=== PATIENT | female | born 1985 | race Caucasian/White ===

== ENCOUNTER → 2017-12-15 11:34 | Outpatient (CLI) | payer OTHER, SELFPAY ==
[2017-12-15 14:12] LABS: hCG Titer Quant., Serum 513 mIU/mL (<9 non-preg)
== END ==
PROVIDERS: Visit Provider Obstetrics & Gynecology
DX: N91.2 Amenorrhea, unspecified (principal)
CPT/HCPCS: 36415; 84702

== ENCOUNTER → 2017-12-17 13:31 | Outpatient (CLI) | payer OTHER, SELFPAY ==
[2017-12-17 16:17] LABS: hCG Titer Quant., Serum 1319 mIU/mL (<9 non-preg)
== END ==
PROVIDERS: Visit Provider Obstetrics & Gynecology
DX: N91.2 Amenorrhea, unspecified (principal)
CPT/HCPCS: 36415; 84702

== ENCOUNTER → 2018-04-02 15:28 | Outpatient (CLI) | payer OTHER, SELFPAY ==
[2018-03-13 15:05] VITALS: BMI 21.9
--- NOTE | 2018-04-02 15:37 | EKG12_ITS ---
Test Reason : Blood Pressure : / mmHG Vent. Rate : 088 BPM Atrial Rate : 088 BPM P-R Int : 156 ms QRS Dur : 094 ms QT Int : 374 ms P-R-T Axes : -05 049 046 degrees QTc Int : 452 ms Normal sinus rhythm Incomplete right bundle branch block Borderline ECG Confirmed by SIRIA TRUJILLO, STORMY ([id number]), news copy editor URBANO ZENG ([id number]) on 04/06/2018 10:13:58 AM Referred By: Meliza Burciaga Confirmed By:STORMY BEVERLY MD
== END ==
PROVIDERS: Referring Provider Obstetrics & Gynecology; Visit Provider Obstetrics & Gynecology
DX: R00.2 Palpitations (principal)
CPT/HCPCS: 93005

== ENCOUNTER 2018-04-08 16:20 | Outpatient (CLI) | payer OTHER, SELFPAY ==
[2018-03-13 15:05] VITALS: BMI 21.9
[2018-04-08 17:41] VITALS: BMI 26.3
--- NOTE | 2018-04-10 08:53 | OB.TRI.PN ---
Progress Notes Date of Service: 04/08/18 Progress Note: patient presented for pelvic pressure and questionable contractions- nothing regular seen, cervix closed, FHT present x 2 reassuring status dc home labor preacutions
--- OUTSIDE RECORDS SUMMARY | 2018-06-13 16:16 | XMS RPT_ITS ---
:1985 Author Organization OHIP Support Name Relationship Address Phone EMILY RODRIGUEZ Unavailable Unavailable Unavailable CARISSA NIXONI Unavailable . + [place] [address] SILROSIO ANNA Unavailable [address] + [place] [address] UE Unavailable Unavailable Unavailable HUSSAIN, DANIEL Unavailable Unavailable + [place] [address] SILROSIO, ANNA Unavailable [address] + [place] [address] UE Unavailable Unavailable Unavailable RIVKA RODRIGUEZE Unavailable Unavailable Unavailable VIGNESH RODRIGUEZLIE Unavailable Unavailable Unavailable HUSSAIN, DANIEL Unavailable . + [place] [address] SILOY, ANNA Unavailable [address] + [place] [address] UE Unavailable Unavailable Unavailable HUSSAIN, DANIEL Unavailable Unavailable + [place] [address] SILOY, ANNA Unavailable [address] + [place] [address] UE Unavailable Unavailable Unavailable VIGNESH RODRIGUEZLIE Unavailable Unavailable Unavailable HUSSAIN, DANIEL Unavailable 0 + [place] [address] SILOY, ANNA Unavailable [address] + [place] [address] UE Unavailable Unavailable Unavailable SILOY, ANNA Unavailable [address] + [place] [address] UE Unavailable Unavailable Unavailable SILOY, ANNA Unavailable [address] + [place] [address] UE Unavailable Unavailable Unavailable Care Team Providers Name Role Phone MELIZA DE LA CRUZ Referring Unavailable NO PRIMARY CARE, Primary Care Unavailable TINY LANGFORD Attending Unavailable HARRISON FRANKLIN Attending Unavailable NO PRIMARY CARE, Referring Unavailable NO PRIMARY CARE, Primary Care Unavailable BETHANY ROCHE Attending Unavailable NO PRIMARY CARE, Primary Care Unavailable MARCANTHONY, MELIZA E Referring Unavailable ANA ROSA EMERSON Attending Unavailable NO PRIMARY CARE, Primary Care Unavailable MARCANTHONY, MELIZA E Referring Unavailable Marcanthony, Meliza Attending Unavailable Marcanthony, Meliza Referring Unavailable Primay Care Physicia, No Primary Care Unavailable BenekosLakshmi Attending Unavailable Primay Care Physicia, No Primary Care Unavailable LauritaMao deal Attending Unavailable Marcanthony, Melzia Referring Unavailable Primay Care Physicia, No Primary Care Unavailable Marcanthony, Meliza Consulting Unavailable Marcanthony, Meliza Attending Unavailable Marcanthony, Meliza Referring Unavailable Primay Care Physicia, No Primary Care Unavailable Marcanthony, Meliza Attending Unavailable Primay Care Physicia, No Referring Unavailable Benekos, Lakshmi Attending Unavailable Primay Care Physicia, No Primary Care Unavailable Marcanthony, Meliza Attending Unavailable Primay Care Physicia, No Referring Unavailable PROBLEMS PROBLEMS DATE TYPE CONDITION / CODE ATTENDING STATUS SOURCE 04/15/2018 Unknown O09.92 - Marcanthony, Active [place] Supervision of [facility] risk [facility] , Repository unspecified, second trimester / O09.92(ICD-10) 04/15/2018 Unknown O30.032 - Twin Marcanthony, Active [place] , [facility] monochorionic/diam Hospital niotic, second Repository trimester / O30.032(ICD-10) 04/15/2018 Unknown Z98.891 - History Marcanthony, Active [place] of uterine scar [facility] from previous Hospital surgery / Repository Z98.891(ICD-10) 04/15/2018 Unknown F84.0 - Autistic Marcanthony, Active [place] disorder / [facility] F84.0(ICD-10) Hospital Repository 04/15/2018 Unknown Z3A.20 - 20 weeks Marcanthony, Active [place] gestation of [facility] / Hospital Z3A.20(ICD-10) Repository 04/06/2018 Unknown R00.2 - LauritaMoose dealril Active [place] Palpitations / Community R00.2(ICD-10) Hospital Repository 03/13/2018 Unknown Z3A.17 - 17 weeks Marcanthony, Active [place] gestation of [facility] / Hospital Z3A.17(ICD-10) Repository 12/15/2017 Unknown N91.2 - Lakshmi Ferrari Active [place] Amenorrhea, [facility] unspecified / Hospital N91.2(ICD-10) Repository PROCEDURES PROCEDURES No Procedure Records FoundRESULTS RESULTS REFURBISH TECHNICIAN OFFICE VISIT Observed: 04/15/2018 Status: F Source: [place] [facility] RE[facility] 12:57 PM [facility] REPOSIT[facility] [address] [place] [address] OFFICE VISIT Date of Service: 04/15/18 MR#: [id number] Acct: [id number] Name: EMILY RODRIGUEZ Rep #: [id number] : 1985 Provider: Meliza De La Cruz MD Age/Sex: 32/F Location: [facility] Status: Signed Intake Vital Signs04/15/18 Height 5 ft 5 in 04/15/18 Weight: 160 lb 4 oz 04/15/18 Body Mass Index (BMI) 26.6 04/15/18 Blood Pressure 120/76 03/13/18 Body Mass Index (BMI) 21.9 Intake Visit Reasons: 21 WK OB *TWINS Fabricating Machine Operator Required: No Is patient in pain?: No Allergies latex Adverse Reaction (Verified 04/15/18 12:26) Rash Medications ferrous sulfate 325 mg (65 mg iron) tablet 325 mg PO DAILY tab 03/13/18 [History Confirmed 04/15/18] vitamin#30 30 mg iron-10 mg iron-folic acid 1 mg- omg3 capsule cap PO cap 03/13/18 [History Confirmed 04/15/18] Aspirin [Aspir 81] 81 mg PO 04/08/18 [History Confirmed 04/15/18] Last Menstral Period: 11/14/17 Zika: Zika virus screening: Negative : No PFSH PFSH Medical History Anxiety (Acute) Infertility (Acute) Surgical History History of appendectomy (Acute) History of dilation and curettage (Acute) Social History Smoking Status: Never smoker alcohol intake: never substance use type: does not use caffeine: Yes what type of physical activity do you participate in: none seatbelt use: always do you feel safe at home: Yes additional social history: [facility] Insurance Pregancy History 7 Elective abortions Hx Para 1 Spontaneous abortions Past Pregnancies Del. DatName GA/WeeksOutcome Route Bt WeigInfant GLabor LgAnesthesDel LocaProviderFOB e ht en th ia tn Unknown 2011 COn live birC-sectio Male Shriner nor th - fuln l term HPI 21 WK OB *TWINS: Details: EMILY RODRIGUEZ is a 32 year old who presents for routine OB visit. OB Visit ASHA Calculator Estimated Delivery Date 08/20/18 Based on LMP (certain) 11/13/17 Current WG 21w 6d Number 2 Initial Weight: 10 lb Date Weight BP Urine PrFHR FuHt Pres MoCTX DilationFetal StVisit NoProviderComments E ot v te GA G Effac lucose ed Visit Notes Visit Date: 04/15/18 no vb lof good fm n oregular ctx. had US at [facility] Meliza De La Cruz MD on 04/15/18 Visit Date: 03/13/18 no vb cramping co some palpitations Meliza De La Cruz MD on 03/13/18 no vb cramping Meliza De La Cruz MD on 03/13/18 Diagnostics Diagnostics Labs Hct 36.7 % (37-47) L 11/19/16 Hgb 12.4 g/dl (12.0-15.0) 11/19/16 Details: HIV: Urine Culture: Sequential Screen: NIPT Screen: Results [id number] Office Urine Glucose Negative Last Edit by Chio Lazaro on 04/15/18 12:39 Office Urine Protein Negative Last Edit by Chio Lazaro on 04/15/18 12:39 Assessment AND Plan Problems 1. Autism F84.0 son 2. History of delivery Z98.891 versus tolac 3. 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 growth every 4 weeks. Weekly BPP at 32 weeks. Deliver at 37 weeks. 4. 20 weeks gestation of Z3A.20 genetic carrier and ntd screening offered and declined. anatomy us reviewed 5. Supervision of high risk in second trimester O09.92 ASHA 08/20/18 Boy Manpreet [facility] [place] [facility] Jimmie Anna OSMAR [facility] Plan ACOG trimester education reviewed and updated. see problem list details for updated plan management information and see below for orders placed at this visit. GA appropriate handout given. 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 O30.032 Trimester: second trimester 20 weeks gestation of Z3A.20 Weeks of gestation: 20 weeks Supervision of high risk in second trimester O09.92 Trimester: second trimester 04/15/18 1257 <Electronically signed by Meliza De La Cruz MD> Date Meliza De La Cruz MD Cosigner Signature: Date (if applicable) CC: PROGRESS NOTE Observed: 04/08/2018 Status: COMPLETED Source: [place] 11:30 AM [facility] REPOSITORY Met with patient and her Anna Here for Searcy/di Twins Medical, surgical and family hx reviewed Psycho/Social risk: Support System: and extended family Financial Stressors: denies Family Dynamics: lives with and son Behavioral Health Issues: denies Work History: homemaker Information on FTC services given. Consent to share information with FTC team, OB and pierce and shave press operator signed. Pt plans to deliver at [facility] with Dr. De La Cruz. Tile Sorter is Dr Weir. Male fetuses- name are yet to be decided Method of feeding: formula Ultrasound findings today: See report in procedures for details. echocardiograms normal x 2 per preliminary report from Dr. Gatica. Pt will follow up q 2 weeks for reevaluation of TTTS surveillance, monthly growth Reinforced continued OB care with Gualberto The total patient time of the visit was 5 minutes, of which greater than 50% of the time was spent counseling and coordinating care. PROGRESS NOTE Observed: 04/08/2018 Status: COMPLETED Source: [place] 11:30 AM [facility] REPOSITORY Patient was seen in [facility] for mono/di twins. The total patient time of the visit was 15 minutes, of which greater than 50% of the time was spent counseling and coordinating care. PROGRESS NOTE Observed: 04/08/2018 Status: COMPLETED Source: [place] 9:00 AM [facility] REPOSITORY New patient 04/10/2018 RE: Emily Rodriguez : 1985 AGE: 32 y.o. CSN#: [id number] Gestational Age: 21 Weeks Delivery Hospital: [facility] Reason for visit: Chief Complaint Patient presents with ECHO echo, monochorionic diamniotic twin , twin a with suspected ventricular septal defect. Other indications:Twin OB History 7 Para 1 Term 1 AB 5 Living 1 SAB TAB Ectopic Multiple Live Births 1 Counseling and/or coordination of care (face to face time in the office/outpatient setting or floor/unit time in the hospital) was greater than 40 minutes which is more than 50% of the total time of 70 minutes spent on the encounter. In addition, the following items were performed before, during and after this visit: Synthesis of current imaging findings. Results for orders placed or performed in visit on 04/08/18 Echo New Narrative [facility] [place] [place] [address] [email or web address] Echocardiogram Report M-mode, complete 2D, complete spectral Doppler, and color Doppler PATIENT: Emily Rodriguez STUDY DATE/TIME: Apr 08 2018 10:22AM HEIGHT: : 1985 WEIGHT: AGE: 32yr BSA/BMI: / GENDER: F BP: 125 / 69 LOCATION: [facility] REFERRING PHYSICIAN: No Primary Care, [facility] [place] ORDERING PROVIDER: Yolanda Rodriguez Cnp READING PHYSICIAN: UYEN Benavides MINCEMEAT MAKER: Elisa Barajas RDCS SUMMARY: 1. Monochorionic-diamniotic twin . Twin B located on maternal left side in vertex position. Structurally normal heart. 2. Normal biventricular function. No AV valve regurgitation. Normal pulsed Doppler across the pulmonary valve. 3. This study is limited in evaluating minor valve abnormalities, septal defects, partial anomalous pulmonary venous connection, and aortic arch abnormalities. 4. The above findings, including the limitations, were discussed with the patient. Recommendations: follow-up if pierce and shave press operator hears a heart murmur or otherwise clinically indicated. REASON FOR EXAM: Searcy-Di twin with possible VSD for twin A. STUDY AND PROCEDURE DATA: Procedure Description: New ([id number]) . Study status: Elective. Location: lab. Procedure: Transabdominal echocardiography for congenital heart disease evaluation. Patient status: Outpatient. Blood pressure: 125/69 Maternal age: 32yr. : 7. Parity: 1. Expected delivery date: 08/20/2018. Gestational age: 20wk. Trimester: 2nd trimester. FINDINGS: DESCRIPTION Two fetuses are present. Normal three vessel view. Fetus Twin B (Located on maternal left side in vertex position): The rhythm is sinus rhythm, with a heart rate of 155bpm. The position is vertex. Normal Doppler pattern of the ductus venosus, umbilical artery, and vein. Three vessel cord. ANATOMIC RELATIONSHIPS - Normal visceral situs, with left sided stomach. Left sided cardiac apex (levocardia).Normally related great vessels. VEINS AND ATRIA Atrial septum - There is a patent foramen ovale. There is a vskkj-on-yrxo shunt. Left atrium - The atrium is normal in size. Right atrium - The atrium is normal in size. Systemic veins - Inferior vena cava and superior vena cava seen entering normally into the right atrium. Pulmonary veins - There are at least 2 out of 4 pulmonary veins seen entering normally into the left atrium, with normal Doppler pattern. A-V CANAL Tricuspid valve - The valve is structurally normal. - There is normal biphasic inflow spectral Doppler. There is no regurgitation. Mitral valve - The valve is structurally normal. - There is normal biphasic inflow spectral Doppler. There is no regurgitation. VENTRICLES Right ventricle - The cavity size is normal. Wall thickness is normal. Systolic function is qualitatively normal. Left ventricle - The cavity size is normal. Wall thickness is normal. Systolic function is quantitatively normal. The endocardial fractional shortening is 41% by M-mode. CONOTRUNCUS Aortic valve - The valve is structurally normal. - There is no stenosis. There is no regurgitation. Pulmonic valve - The valve is structurally normal. - There is no stenosis. There is no regurgitation. GREAT ARTERIES Aorta - Left aortic arch and normal branching pattern is demonstrated. Normal ductal arch seen. Normally related great arteries. Pulmonary arteries - The proximal branch pulmonary arteries are normal. Main pulmonary artery: The artery is of normal size. Systemic-pulmonary shunts - Patent ductus arteriosus. Normal pulsed wave Doppler pattern. PERICARDIUM - There is no significant pericardial effusion. MEASUREMENTS: Fetus Twin B (Located on maternal Value Reference Z left side in vertex position) Biparietal diameter (H) 5.30 cm 4.24 - 5.21 2.3 Head circumference 18.60 cm ---- Abdominal circumference 17.34 cm ---- Femur length 3.55 cm ---- Humerus length 3.47 cm ---- Transcerebellar diameter 1.96 cm ---- Weight (estimated) 447 g ---- Cardiac area 45.60 mm2 ---- Thoracic area 157.6 mm2 ---- Cardiac/thoracic area 0.29 ---- Femur/biparietal diameter 0.67 ---- Left ventricle Value Reference Z LV ID, ED, MM 0.66 cm ---- LV ID, ES, MM 0.39 cm ---- LV fx shortening, MM 41 % 28 - 43 1.5 LV mid-wall fx shortening, MM 13 % ---- LV PW thickness, ED, MM 0.24 cm ---- LV PW thickness, ES, MM 0.29 cm ---- LV PW thickening, MM 21 % ---- IVS/LV PW ratio, ED, MM 0.83 0.73 - 1.4 -1.4 LV relative wall thickness, 0.73 ---- ED, MM LV end-diastolic volume, 1 ml ---- Teichholz MM LV end-systolic volume, 0 ml ---- Teichholz MM LV ejection fraction, 86 % ---- Teichholz MM LV wall mass, MM 1 g ---- Right ventricle Value Reference Z RV ID, ED, MM 0.8 cm ---- Ventricular septum Value Reference Z IVS thickness, ED, MM 0.20 cm ---- IVS thickness, ES, MM 0.26 cm ---- IVS thickening, MM 30 % ---- Aortic valve Value Reference Z Aortic valve peak velocity, S 0.6 m/sec ---- Aortic valve mean velocity, S 0.35 m/sec ---- Aortic valve VTI, S 6.2 cm ---- Aortic mean gradient, S 1 mm Hg ---- Aortic peak gradient, S 1 mm Hg ---- Mitral valve Value Reference Z Mitral E-wave peak velocity 0.24 m/sec ---- Mitral A-wave peak velocity 0.43 m/sec ---- Mitral mean velocity, D 0.21 m/sec ---- Mitral mean gradient, D 0 mm Hg ---- Mitral E/A ratio, peak 0.56 ---- Mitral A-wave VTI 3.8 cm ---- Tricuspid valve Value Reference Z Tricuspid E-wave peak velocity 0.3 m/sec ---- Tricuspid A-wave peak velocity 0.45 m/sec ---- Tricuspid E/A ratio, peak 0.67 ---- Tricuspid mean velocity, D 0.25 m/sec ---- Tricuspid mean gradient, D 0 mm Hg ---- Tricuspid VTI at annulus, D 4.2 cm ---- Pulmonic valve Value Reference Z Pulmonic valve peak velocity, 0.43 m/sec ---- S Pulmonic valve mean velocity, 0.29 m/sec ---- S Pulmonic mean gradient, S 0 mm Hg ---- Pulmonic peak gradient, S 1 mm Hg ---- Legend: (L) and (H) david values outside specified reference range. ABELINO ICD Codes: (O30.039) Twin monochorionic-diamniotic unspecified trimester. Interpreted and electronically signed by UYEN Benavides 04/08/2018 14:52 Twin A on maternal right side SUMMARY: 1. Monochorionic-diamniotic . Twin A located on maternal right side with vertex presentationt. Structurally normal heart. 2. The ventricular septum was intact seen by 2-D and color Doppler. Normal biventricular function. 3. This study is limited in evaluating minor valve abnormalities, septal defects, partial anomalous pulmonary venous connection, and aortic arch abnormalities. 4. The above findings, including the limitations, were discussed with the patient. Recommendations: follow-up if pierce and shave press operator hears a heart murmur or otherwise clinically indicated. REASON FOR EXAM: Searcy-Di twin , possible VSD in Twin A. STUDY AND PROCEDURE DATA: Procedure Description: New ([id number]) . Study status: Elective. Location: lab. Procedure: Transabdominal echocardiography for congenital heart disease evaluation. Patient status: Outpatient. Blood pressure: 125/59 Maternal age: 32yr. : 7. Parity: 1. Expected delivery date: 08/20/2018. Gestational age: 20wk. Trimester: 2nd trimester. FINDINGS: DESCRIPTION Two fetuses are present. Normal three vessel view. Fetus Twin A (Located maternal right side): The rhythm is sinus rhythm, with a heart rate of 155bpm. The position is vertex. Normal Doppler pattern of the ductus venosus, umbilical artery, and vein. Three vessel cord. ANATOMIC RELATIONSHIPS - Normal visceral situs, with left sided stomach. Left sided cardiac apex (levocardia).Normally related great vessels. VEINS AND ATRIA Atrial septum - There is a patent foramen ovale. There is a iyoda-af-kjul shunt. Left atrium - The atrium is normal in size. Right atrium - The atrium is normal in size. Systemic veins - Inferior vena cava and superior vena cava seen entering normally into the right atrium. Pulmonary veins - There are at least 2 out of 4 pulmonary veins seen entering normally into the left atrium, with normal Doppler pattern. A-V CANAL Tricuspid valve - The valve is structurally normal. - There is normal biphasic inflow spectral Doppler. There is no regurgitation. Mitral valve - The valve is structurally normal. - There is normal biphasic inflow spectral Doppler. There is no regurgitation. VENTRICLES Right ventricle - The cavity size is normal. Wall thickness is normal. Systolic function is qualitatively normal. Left ventricle - The cavity size is normal. Wall thickness is normal. Systolic function is quantitatively normal. The endocardial fractional shortening is 31% by M-mode. CONOTRUNCUS Aortic valve - The valve is structurally normal. - There is no stenosis. There is no regurgitation. Pulmonic valve - The valve is structurally normal. - There is no stenosis. There is no regurgitation. GREAT ARTERIES Aorta - Left aortic arch and normal branching pattern is demonstrated. Normal ductal arch seen. Normally related great arteries. Pulmonary arteries - The proximal branch pulmonary arteries are normal. Main pulmonary artery: The artery is of normal size. Systemic-pulmonary shunts - Patent ductus arteriosus. Normal pulsed wave Doppler pattern. PERICARDIUM - There is no significant pericardial effusion. MEASUREMENTS: Fetus Twin A (Located maternal right Value Reference Z side) Biparietal diameter 5.03 cm 4.24 - 1.2 5.21 Head circumference 186.40 cm ---- Abdominal circumference 17.11 cm ---- Femur length 3.31 cm ---- Humerus length 3.46 cm ---- Transcerebellar diameter 2.10 cm ---- Weight (estimated) 411 g ---- Cardiac area 36.30 mm2 ---- Thoracic area 145.4 mm2 ---- Cardiac/thoracic area 0.25 ---- Femur/biparietal diameter 0.66 ---- Left ventricle Value Reference Z LV ID, ED, MM 0.89 cm ---- LV ID, ES, MM 0.61 cm ---- LV fx shortening, MM 31 % 28 - 43 -0.8 LV mid-wall fx shortening, 14 % ---- MM LV PW thickness, ED, MM 0.18 cm ---- LV PW thickness, ES, MM 0.21 cm ---- LV PW thickening, MM 17 % ---- IVS/LV PW ratio, ED, MM 1.17 0.73 - 1.4 0.6 LV relative wall thickness, 0.4 ---- ED, MM LV end-diastolic volume, 2 ml ---- Teichholz MM LV end-systolic volume, 1 ml ---- Teichholz MM LV ejection fraction, 67 % ---- Teichholz MM LV wall mass, MM 2 g ---- Right ventricle Value Reference Z RV ID, ED, MM 0.8 cm ---- Ventricular septum Value Reference Z IVS thickness, ED, MM 0.21 cm ---- IVS thickness, ES, MM 0.24 cm ---- IVS thickening, MM 14 % ---- Aortic valve Value Reference Z Aortic valve peak velocity, 0.8 m/sec ---- S Aortic valve mean velocity, 0.47 m/sec ---- S Aortic valve VTI, S 9.3 cm ---- Aortic mean gradient, S 1 mm Hg ---- Aortic peak gradient, S 2 mm Hg ---- Mitral valve Value Reference Z Mitral E-wave peak velocity 0.31 m/sec ---- Mitral A-wave peak velocity 0.54 m/sec ---- Mitral mean velocity, D 0.25 m/sec ---- Mitral mean gradient, D 0 mm Hg ---- Mitral E/A ratio, peak 0.57 ---- Mitral A-wave VTI 5.9 cm ---- Tricuspid valve Value Reference Z Tricuspid E-wave peak 0.34 m/sec ---- velocity Tricuspid A-wave peak 0.48 m/sec ---- velocity Tricuspid E/A ratio, peak 0.71 ---- Tricuspid mean velocity, D 0.25 m/sec ---- Tricuspid mean gradient, D 0 mm Hg ---- Tricuspid VTI at annulus, D 4.5 cm ---- Pulmonic valve Value Reference Z Pulmonic valve peak 0.46 m/sec ---- velocity, S Pulmonic valve mean 0.27 m/sec ---- velocity, S Pulmonic mean gradient, S 0 mm Hg ---- Pulmonic peak gradient, S 1 mm Hg ---- Legend: (L) and (H) david values outside specified reference range. ABELINO ICD Codes: (O30.039) Twin monochorionic-diamniotic unspecified trimester. Interpreted and electronically signed by UYEN Benavides 04/08/2018 13:36 12 LEAD ELECTROCARDIOGRAM Observed: 04/06/2018 Status: F Source: [place] 10:14 AM [facility] REPOSITORY [facility] Cardiovascular Services [address] [place] [address] 12 Lead EKG 04/02/18 1543 MR#: [id number] Acct: [id number] Name: EMILY RODRIGUEZ Rep #: [id number] : 1985 32 From: Mao Shay MD Attending Dr: Meliza De La Cruz MD Status: REG CLI Ordering Dr: Meliza De La Cruz MD Date: 04/02/18 Location: [facility] Sex: F C Admitted: Test Reason : Blood Pressure : / mmHG Vent. Rate : 088 BPM Atrial Rate : 088 BPM P-R Int : 156 ms QRS Dur : 094 ms QT Int : 374 ms P-R-T Axes : -05 049 046 degrees QTc Int : 452 ms Normal sinus rhythm Incomplete right bundle branch block Borderline ECG Confirmed by LAURITA TRUJILLO, MAO ([id number]), newspaper managing editor URBANO ZENG ([id number]) on 04/06/2018 10:13:58 AM Referred By: Meliza De La Cruz Confirmed By:MAO SHAY MD 04/06/18 1014 Date Mao Shay MD CC: No Primary Care Physician; Meliza De La Cruz MD Signed REFURBISH TECHNICIAN OFFICE VISIT Observed: 03/13/2018 Status: F Source: [place] REPORT 3:01 PM [facility] [address] [place] [address] OFFICE VISIT Date of Service: 03/13/18 MR#: [id number] Acct: [id number] Name: EMILY RODRIGUEZ Rep #: [id number] : 1985 Provider: Meliza De La Cruz MD Age/Sex: 32/F Location: [facility] Status: Signed Intake Vital Signs03/13/18 Body Mass Index (BMI) 21.9 03/13/18 Height 5 ft 5 in 03/13/18 Weight: 144 lb 03/13/18 Body Mass Index (BMI) 23.9 03/13/18 Blood Pressure 90/48 L Intake Visit Reasons: 17 WEEK TRANSFER - TWINS, DR. FERRARI Chief Complaint: est ob, twins transfer Fabricating Machine Operator Required: No Is patient in pain?: No Allergies latex Adverse Reaction (Verified 03/13/18 14:19) Unknown Medications ferrous sulfate 325 mg (65 mg iron) tablet 325 mg PO DAILY tab 03/13/18 [History Confirmed 03/13/18] vitamin#30 30 mg iron-10 mg iron-folic acid 1 mg- omg3 capsule cap PO cap 03/13/18 [History Confirmed 03/13/18] Last Menstral Period: 11/14/17 : No PFSH PFSH Medical History Anxiety (Acute) Infertility (Acute) Surgical History History of appendectomy (Acute) History of dilation and curettage (Acute) Social History Smoking Status: Never smoker alcohol intake: never substance use type: does not use caffeine: Yes what type of physical activity do you participate in: none seatbelt use: always do you feel safe at home: Yes additional social history: [facility], [place] [employer] Insurance Pregancy History 7 Elective abortions Hx Para 1 Spontaneous abortions Past Pregnancies Del. DatName GA/WeeksOutcome Route [facility] LgAnestheJovita LocaProviderFOB e ht en ia tn Unknown 2011 COn live birC-sectio Male Shriner nor - fuln l term HPI 17 WEEK TRANSFER - TWINS, DR. FERRARI: Details: EMILY RODRIGUEZ is a 32 year old who presents for routine OB visit. OB Visit ASHA Calculator Estimated Delivery Date 05/30/19 Based on LMP (certain) 11/13/17 Current WG 17w 1d Number 2 Initial Weight: Not Recorded Date Weight BP Urine PFHR FuHt Pres MCTX DilatioFetal SVisit NProvideComment rot ov n t ote r s EGA Ef Gluco faced se 03/13/1144 lb 90/48 A 153 A A A A no vb 8 crampi 17 B B B B ng no v w 1d 147 b cramp ing co some pa lpitati ons B Visit Notes Visit Date: 03/13/18 no vb cramping co some palpitations Meliza De La Cruz MD on 03/13/18 no vb cramping Meliza De La Cruz MD on 03/13/18 Diagnostics Diagnostics Labs Hct 36.7 % (37-47) L 11/19/16 Hgb 12.4 g/dl (12.0-15.0) 11/19/16 Details: HIV: Urine Culture: Sequential Screen: NIPT Screen: Assessment AND Plan Problems 1. Supervision of high risk in second trimester O09.92 ASHA 08/20/18 PC Jimmie Anna 2. 17 weeks gestation of Z3A.17 genetic carrier and ntd screening offered and declined. anatomy us ordered 3. Monochorionic diamniotic twin gestation in second trimester O30.032 mfm consult 4. History of delivery Z98.891 versus tolac Plan ACOG trimester education reviewed and updated. see problem list details for updated plan management information and see below for orders placed at this visit. [place] appropriate handout given. Coding Level of Care Code OB Routine Diagnoses Supervision of high risk in second trimester O09.92 Trimester: second trimester 17 weeks gestation of Z3A.17 Weeks of gestation: 17 weeks Monochorionic diamniotic twin gestation in second trimester O30.032 Trimester: second trimester History of delivery Z98.891 03/13/18 1501 <Electronically signed by Meliza De La Cruz MD> Date Meliza De La Cruz MD Cosigner Signature: Date (if applicable) CC: HCG TITER QUANT., Collected: 12/17/2017 Status: F Source: [facility] 1:32 PM [facility] REPOSITORY TYPE CODE TESTS RESULT OUT OF RANGE REFERENCE UNITS LAB L700.8000 <9 non-preg mIU/mL High HCG 1319 QUANT. Performed By: #### L700.8000 #### [facility] [address] [place], [place], [address] HCG TITER QUANT., Collected: 12/15/2017 Status: F Source: [place] 11:38 AM [facility] REPOSITORY TYPE CODE TESTS RESULT OUT OF RANGE REFERENCE UNITS LAB L700.8000 <9 non-preg mIU/mL High HCG 513 QUANT. Performed By: #### L700.8000 #### [facility] [address] [place], [place], [address] ALLERGIES ALLERGIES DATE TYPE / CODE NAME / CODE REACTION SEVERITY SOURCE 04/15/2018 Drug latex/[id number] Rash Unknown [facility] Allergy/4160 921(RXNORM) Hospital 76565(SNOMED Repository CT) 04/08/2018 DRUG LATEX [facility]/4195 Hospital [address]014(SNOMED Repository CT) ENCOUNTERS ENCOUNTERS ADMIT/DISCHARGE ACCOUNT ADMITTING ENCOUNTER LOCATION SOURCE NUMBER CLASS 04/16/2018/04/16/19 [id number] Ambulatory Building:[address] Repository 04/15/2018/04/15/19 [id number] Ambulatory BMSBuilding:Christen Francis MS.[facility] Repository 04/08/2018/04/08/19 [id number] Ambulatory [address] ing:WPOUTRoom Repository : WP013 04/08/2018/04/08/19 [id number] Ambulatory Building:[address] Repository 04/08/2018/04/08/19 [id number] Ambulatory Building:[address] Repository 04/02/2018 [id number] Ambulatory BMSBuilding:B [place] MS.CF.[facility] Repository 04/02/2018 [id number] Ambulatory [facility] ing:[facility] Repository 04/02/2018/04/02/19 [id number] Ambulatory Building:[facility] [place] [facility] Repository 03/13/2018/03/13/20 [id number] Ambulatory BMSBuilding:B [place] 18 MS.[facility] Repository 12/17/2017 [id number] Ambulatory [facility] ing:WOBLAB Repository 12/15/2017 [id number] Ambulatory [facility] ing:WOBLAB Repository PAYERS PAYERS ENCOUNTER GUARANTOR PAYER SUBSCRIBER SOURCE 04/16/2018 EMILY Primary [facility] SIL[facility]: Insurance:[place] [id number] Hospital [id number] [place] [address] TR Repository TR [address] [place] [address], Number: [address] [place], [place] [address]Tel: [phone] [facility] Date: () 04/15/2018 EMILY Primary ANNA SILOYDOB: [place] [id number] TR Insurance:[facility] [id number] [place] [id number]: [phone]) Number: Repository [phone] () [id number] Date:8068-70-50[address]KQW, [place] [address]GX: 04/15/2018 Secondary NOT GIVENUNK [place] Insurance:SELF PAY [facility] Number: Effective Repository Date:2018-04-03 04/08/2018 EMILY Primary ANNA SILOYDOB: [place] [id number] TR Insurance:[facility] [id number] [place] [id number]: [phone]) Number: Repository [phone] () [id number] Date:7489-42-27C[address]NGY, [place] [address]AQ: 04/08/2018 Secondary NOT GIVENUNK [place] Insurance:SELF PAY [facility] Number: Effective Repository Date:2018-04-08 04/08/2018 EMILY Primary ANNA SILOYDOB: [facility] SILOYDOB: Insurance:[place] [id number] Hospital [facility] 3 TR Repository TR [address] [place] [address], Number: [id number] [place] [address]Gly: [id number] Date: () 04/08/2018 EMILY Primary ANNA SILOYDOB: [facility] SILOYDOB: Insurance:[place] [id number] Hospital [facility] 3 TR Repository TR [address] [place] [address], Number: [facility] [id number]: [id number] Date: (HP) 04/02/2018 EMILY Primary ANNA SILOYDOB: [place] [id number] TR Insurance:[facility] [id number] [address]Gkc: (419) Number: Repository [phone] () [id number] Date:5205-56-00FD [facility] [place]WKUZJWP, [place] [address]XZ: 04/02/2018 Secondary NOT GIVENUNK [place] Insurance:SELF PAY [facility] Number: Effective Repository Date:2018-04-02 04/02/2018 EMILY Primary ANNA SILOYDOB: [place] [id number] TR Insurance:[facility] [id number] [address]Xpj: (419) Number: Repository [phone] () [id number] Date:3020-08-54[address]SPDQSPH, [place] [address]TO: 04/02/2018 Secondary NOT GIVENUNK [place] Insurance:SELF PAY [facility] Number: Effective Repository Date:2018-04-02 04/02/2018 EMILY Primary ANNA SILOYDOB: [facility] SILOYDOB: Insurance:[place] [id number] Hospital [id number] [place] [address] TR Repository TR [address] [place] [address], Number: [phone] [place] [address]Fys: [id number] [facility] Date: () 03/13/2018 EMILY Primary ANNA SILOYDOB: [place] [id number] TR Insurance:[facility] [id number] [place] [address]Tel: (419) Number: Repository [phone] () [id number] Date:2712-33-43HY [address] [address]EU: 03/13/2018 Secondary NOT GIVENUNK [place] Insurance:SELF PAY [facility] Number: Effective Repository Date:2018-03-12 12/17/2017 Emily Primary ANNA SILOYDOB: [place] [id number] [address] Insurance:[facility] [id number] [place] [id number]: (419) Number: Repository [phone] () [id number] Date:8811-21-29BC [place] [address]WP: 12/17/2017 Secondary NOT GIVENUNK [place] Insurance:SELF PAY [facility] Number: Effective Repository Date:2017-12-17 12/15/2017 Emily Primary ANNA SILOYDOB: [place] [id number] [address] Insurance:[facility] [id number] [place] [id number]: (419) Number: Repository [phone] () [id number] Date:2659-20-58GZNANCY [place] [address]WP: 12/15/2017 Secondary NOT GIVENUNK [place] Insurance:SELF PAY [facility]: Effective Repository Date:2017-12-15
== END 2018-04-08 18:30 | disposition home or self-care (01) ==
LOC: WPOUT 16:21 → WP 16:24
PROVIDERS: Referring Provider Obstetrics & Gynecology; Visit Provider Obstetrics & Gynecology
DX: Z34.90 Encounter for supervision of normal pregnancy, unspecified, unspecified trimester (principal)
CPT/HCPCS: 59025; 59050; 99218; G0378

== ENCOUNTER → 2018-05-26 15:54 | Outpatient (CLI) | payer OTHER, SELFPAY ==
[2018-05-26 15:05] VITALS: BMI 28.6
[2018-05-26 16:38] LABS: Absolute Lymphocyte Count 1.43 X10^3/ul (0.83-4.51); Absolute Neutrophil Count 6.2 X10^3/uL (2.0-7.7); Basophil# 0.02 X10^3/uL; Basophil% 0.2 % (0-1); Eosinophil# 0.08 X10^3/uL; Eosinophils% 0.9 % (0-5); Hematocrit 33.1 % (37-47); Hemoglobin 11.2 g/dl (12.0-15.0); Lymphocyte # 1.43 X10^3/ul (4.0); Lymphocyte % 16.6 % (19-41); Mean Corp Hgb Conc 33.8 g/gl (32-36); Mean Corpuscular Hgb 32.6 pg (27.0-32.0); Mean Corpuscular Volume 96.2 fL (81-99); Mean Platelet Vol. 9.6 fl (6.2-12.0); Monocyte# 0.75 X10^3/uL; Monocyte% 8.7 % (0-10); Neutrophil # 6.21 X10^3/uL (2.7-7.7); Neutrophil % 72.1 % (47-70); Platelet Count 194 K/mm3 (150-450); RBC Distribution Width CV 13.1 % (11.6-14.6); RBC Distribution Width SD 43.9 fl (35.1-43.9); Red Blood Count 3.44 M/mm3 (4.2-5.4); White Blood Count 8.6 K/mm3 (4.4-11.0)
[2018-05-26 16:46] LABS: Glucose Challenge Gest 1H 50g 118 mg/dL (70-140)
[2018-05-26 16:55] LABS: POSITIVE COUNT NO; POSITIVE DIFFERENTIAL NO; POSITIVE MORPHOLOGY NO
== END ==
PROVIDERS: Referring Provider Obstetrics & Gynecology; Visit Provider Obstetrics & Gynecology
DX: Z34.90 Encounter for supervision of normal pregnancy, unspecified, unspecified trimester (principal)
CPT/HCPCS: 36415; 82950; 85025

== ENCOUNTER 2018-07-23 13:10 | Outpatient (CLI) | payer OTHER, SELFPAY ==
[2018-07-16 15:25] VITALS: BMI 28.6
[2018-07-23 13:22] VITALS: BMI 31.2
[2018-07-23] MEDS: Betamethasone/Betamethasone 30 MG/5 ML Vial 12 MG IM (13:36)
--- NOTE | 2018-07-23 18:18 | OB.TRI.NOTE ---
History of Present Illness Date of Service: 07/20/18 Was patient seen by the physician?: No Reason For Visit: CELESTONE SHOT Date of Service: 07/20/18 Final ASHA: 08/20/18 Final ASHA Source: US <20 weeks Gestational age: 35 4/7 wk History of Present Illness: 33 yo at 35 4/7 wk presents for second celestone injection. Allergies latex Adverse Reaction (Verified 07/16/18 15:02) Rash - Pertinent Past Medical History Medical History: Past Medical History (Last Reviewed 07/16/18 @ 15:03 by Celine Warner) Anxiety Infertility Surgical History: Past Surgical History (Last Reviewed 07/16/18 @ 15:03 by Celine Warner) History of appendectomy History of dilation and curettage
== END 2018-07-23 13:45 | disposition home or self-care (01) ==
LOC: WPOUT 13:14 → WP 13:14
PROVIDERS: Referring Provider Obstetrics & Gynecology; Visit Provider Obstetrics & Gynecology
DX: Z34.93 Encounter for supervision of normal pregnancy, unspecified, third trimester (principal); Z3A.35 35 weeks gestation of pregnancy
CPT/HCPCS: 96372; 99218; G0378; J0702

== ENCOUNTER 2018-07-24 13:30 | Outpatient (CLI) | payer OTHER, SELFPAY ==
[2018-07-23 13:22] VITALS: BMI 31.2
[2018-07-24 13:46] VITALS: BMI 31.4
[2018-07-24] MEDS: Betamethasone/Betamethasone 30 MG/5 ML Vial 12 MG IM (14:17)
== END 2018-07-24 14:30 | disposition home or self-care (01) ==
LOC: WPOUT 13:37 → WP 13:38
PROVIDERS: Referring Provider Obstetrics & Gynecology; Visit Provider Obstetrics & Gynecology
DX: Z34.90 Encounter for supervision of normal pregnancy, unspecified, unspecified trimester (principal)
CPT/HCPCS: 59050; 96372; 99218; G0378; J0702

== ENCOUNTER → 2018-07-27 13:19 | Outpatient (CLI) | payer OTHER, SELFPAY ==
[2018-07-27 09:39] VITALS: BMI 31.4
== END ==
PROVIDERS: Referring Provider Obstetrics & Gynecology; Visit Provider Obstetrics & Gynecology
DX: Z34.93 Encounter for supervision of normal pregnancy, unspecified, third trimester (principal); Z3A.36 36 weeks gestation of pregnancy
CPT/HCPCS: 87081

== ENCOUNTER 2018-07-30 09:50 | Inpatient (IN) | payer OTHER, SELFPAY ==
[2018-07-16 15:25] VITALS: BMI 28.6
[2018-07-27 09:39] VITALS: BMI 31.4
--- NOTE | 2018-07-27 09:41 | HP.PCM_ITS ---
- Problem List (1) Autism Status: Acute Comment: son (2) History of delivery Status: Acute Comment: versus tolac- consent form signed, uptodate education given (3) Monochorionic diamniotic twin gestation Status: Acute Qualifiers: Comment: 04/08/18 OB limited US MFM- 1 week RAINE check with MFM due to polyhydramnios. Twin A is polyhydramnios and twin B normal 06/04/18 then every 1- 2 weeks. growth every 4 weeks. Baby A- small bladder Baby A echogenic foci in liver, Baby B echogenic foci near stomach. Weekly BPP at 28 weeks and twice weekly if GDM is diagnosed. Deliver at 37 weeks. (4) Status: Acute Qualifiers: Comment: genetic carrier and ntd screening offered and declined. anatomy us reviewed. Tdap given 05/26/18 (5) Supervision of high-risk Status: Acute Qualifiers: Comment: PRR ASHA 08/20/18 Boy Protestant /Boy Felix PC Jimmie Thom [facility] History and Physical Date of Admission: 07/30/18 Vital Signs 07/27/18 Height 5 ft 5 in 07/27/18 Weight: 191 lb 8 oz 07/27/18 Body Mass Index (BMI) 31.8 07/27/18 Blood Pressure 110/60 07/16/18 Body Mass Index (BMI) 28.6 Intake Visit Reasons: 37 WEEK OB Securities Broker Required: No Is patient in pain?: No Allergies latex Adverse Reaction (Verified 07/27/18 09:17) Rash Medications ferrous sulfate 325 mg (65 mg iron) tablet 325 mg PO DAILY tab 03/13/18 [Histor y Confirmed 07/27/18] vitamin#30 30 mg iron-10 mg iron-folic acid 1 mg-omg3 capsule 1 cap PO DAILY cap 03/13/18 [History Confirmed 07/27/18] Aspirin [Aspir 81] 81 mg PO DAILY 04/08/18 [History Confirmed 07/27/18] ranitidine 150 mg tablet 150 mg PO BID #60 tab 06/22/18 [Rx Confirmed 07/27/18] Last Menstral Period: 11/14/17 Zika: Zika virus screening: Negative : No PFSH PFSH Medical History Anxiety (Acute) Infertility (Acute) Surgical History History of appendectomy (Acute) History of dilation and curettage (Acute) Social History Smoking Status: Never smoker alcohol intake: never substance use type: does not use caffeine: Yes what type of physical activity do you participate in: none seatbelt use: always do you feel safe at home: Yes additional social history: [facility] [employer] Insurance Pregancy History 7 Elective abortions Hx Para 1 Spontaneous abortions Hx # Term Pregnancies Ectopic pregnancies Hx # Pregnancies Multiple births # of living children Past Pregnancies Del. Date Name GA/Weeks Outcome Route Bth Weight Gen Labor Lgth Anesthesia Del Locatn Provider FOB Unknown 2011 Jimmie live - full term Male Kate HPI 37 WEEK OB: Details: RAQUEL RODRIGUEZ is a 33 year old who presents for routine OB visit. OB Visit ASHA Calculator Estimated Delivery Date 08/20/18 Based on LMP (certain) 11/13/17 Current WG 36w 4d Number 2 Expected Delivery Route/Plan Specific Issue/Plans flu vaccine: declines tdap vaccine: given rhogam: na LARC form signed: labor support person: thom pain management: [] cut cord/dad catch: [] : [] PP control planned: [] discussed possible routes of delivery and associated risks: [] special requests: [] Initial Weight: 10 lb Date EGA Weight BP Urine Prot Glucose FHR FuHt Pres Mov CTX Dilation Effaced St Visit Note 03/13/18 17w 1d 144 lb (+134 lb) 90/48 A 153 B 147 A B A B A B A no vb cramping no vb cramping co some palpitations B 04/15/18 21w 6d 160 lb 4 oz (+150 lb 4 oz) 120/76 Negative Negative A 150 145 B 145 168 A B A B A B A no vb lof good fm n oregular ctx. had US at [facility] B 05/11/18 25w 4d 172 lb 2 oz (+162 lb 2 oz) 90/64 Negative Negative A 150 B 145 A B A B A B A no vb lof good fm n roegular ctx B 05/26/18 27w 5d 172 lb (+162 lb) 102/60 Negative Negative A 150 B 160 A B A B A B A no vb lof good fm n oregular ctx B 06/16/18 30w 5d 178 lb (+168 lb) 90/58 Negative Negative A 139 B 136 A B A B A B A no vb lof good fm no regular ctx B 07/03/18 33w 1d 180 lb (+170 lb) 92/58 Negative Negative A 160 B 150 A B A B A B A no vb lof good fm n roegular ctx. B 07/16/18 35w 0d 185 lb 4 oz (+175 lb 4 oz) 102/50 Negative Negative A 160 B 150 A Breech B Breech A B A B A n ovb lof good fm no regular ctx B 07/27/18 36w 4d 191 lb 8 oz (+181 lb 8 oz) 110/60 Negative Negative A 140 B 160 A B A B A B A no vb lof good fm no regular ctx B Visit Notes Visit Date: 07/27/18 no vb lof good fm no regular ctx Meliza Burciaga MD on 07/27/18 Visit Date: 07/16/18 n ovb lof good fm no regular ctx Meliza Burciaga MD on 07/16/18 Visit Date: 07/03/18 no vb lof good fm n roegular ctx. Meliza Burciaga MD on 07/03/18 Visit Date: 06/16/18 no vb lof good fm no regular ctx Meliza Burciaga MD on 06/16/18 Visit Date: 05/26/18 no vb lof good fm n oregular ctx Meliza Burciaga MD on 05/26/18 Visit Date: 05/11/18 no vb lof good fm n roegular ctx Meliza Burciaga MD on 05/11/18 Visit Date: 04/15/18 no vb lof good fm n oregular ctx. had US at [facility] Meliza Burciaga MD on 04/15/18 Visit Date: 03/13/18 no vb cramping co some palpitations Meliza Burciaga MD on 03/13/18 no vb cramping Meliza Burciaga MD on 03/13/18 ACOG First Trimester First Trimester: Desire for , Alcohol, Tobacco Cessation, Illicit/Recreational Drug/Substance Use, Intimate Partner Violence, Barriers to care, Unstable Housing, Communication Barriers, Environmental/Work Hazards, Anticipated Course of Care, Toxoplasmosis Precations, Use of Any medications, Sexual activity, Exercise, Dental Care, Sauna/Hot tub use, Seat Belt use, Childbirth classes/Hospital facilities, , Travel, Indications for US and Screening for Aneuploidy Second Trimester Second Trimester: Signs and Symptoms of Labor, Selecting a care provider, Reproductive Life Planning, Care Planning, Tobacco Cessation, Depression/Anxiety and Intimate Partner Violence Third Trimester Third Trimester: Pain Management Plans, Labor support person(s), Immediate Larc, Movement Monitoring and Feeding Yes ; discussed Trial of Labor after Counseling or discussed Circumcision preference Diagnostics Diagnostics Labs Hct 33.1 % (37-47) L 05/26/18 Hgb 11.2 g/dl (12.0-15.0) L 05/26/18 Glucose 1 Hr 50 gm 118 mg/dL (70-140) 05/26/18 Details: HIV: Urine Culture: Sequential Screen: NIPT Screen: ROS Const Reports system reviewed and no additional complaints, except as docu Card Reports system reviewed and no additional complaints, except as docu Resp Reports system reviewed and no additional complaints, except as docu GI Reports system reviewed and no additional complaints, except as docu, Reports nausea Reports system reviewed and no additional complaints, except as docu Musc Reports system reviewed and no additional complaints, except as docu Exam Const General: cooperative, healthy appearing, comfortable, anxious HENVT Head: normal to inspection Nose: external nose normal Face and sinus: normal facial exam Neck Neck: normal visual inspection, full ROM, no lymphadenopathy Thyroid: thyroid normal Chest Chest palpation & inspection: normal inspection of the chest Resp Effort & Inspection: normal respiratory effort GI Inspection: normal to inspection Palpation: soft, other (gravid uterus) Other: vertex and appropriate size for gestational age Other: Cervical Exam: Extrem General: pedal edema Results [id number] Office Urine Glucose Negative Last Edit by Celine Warner on 07/27/18 09:22 Office Urine Protein Negative Last Edit by Celine Warner on 07/27/18 09:22 Assessment & Plan Problems 1. Autism F84.0 2. History of delivery Z98.891 3. Monochorionic diamniotic twin gestation in third trimester O30.033 4. 36 weeks gestation of Z3A.36 5. Supervision of high risk in third trimester O09.93 Plan plan RLTCS movement and labor precautions reviewed. ACOG trimester education reviewed and updated. see problem list details for updated plan management information and see below f or orders placed at this visit. [place] appropriate handout given. Orders Orders: POC Urinalysis 2 Dip (Clinic) Today Coding Level of Care Code OB Routine Diagnoses Autism F84.0 History of delivery Z98.891 Monochorionic diamniotic twin gestation in third trimester O30.033 Trimester: third trimester 36 weeks gestation of Z3A.36 Weeks of gestation: 36 weeks Supervision of high risk in third trimester O09.93 Trimester: third trimester UPDATE- I have seen the patient and performed any clinically relevant updates to the history and physical exam. Meliza Burciaga MD
[2018-07-30] VITALS (18 sets, daily range): BP systolic 92–113; BP diastolic 36–79; PULSE 67–97; RESP 14–18; TEMP 36.4–36.7; O2SAT 97–100; BMI 30.5
[2018-07-30] MEDS: Lactated Ringers 1,000 ML 999 ML IV (10:20)
[2018-07-30 10:34] LABS: Absolute Lymphocyte Count 1.39 X10^3/ul (0.83-4.51); Basophil# 0.01 X10^3/uL; Basophil% 0.1 % (0-1); Eosinophil# 0.02 X10^3/uL; Eosinophils% 0.3 % (0-5); Hematocrit 36.5 % (37-47); Hemoglobin 12.5 g/dl (12.0-15.0); Lymphocyte # 1.39 X10^3/ul (4.0); Lymphocyte % 19.1 % (19-41); Mean Corp Hgb Conc 34.2 g/gl (32-36); Mean Corpuscular Hgb 31.5 pg (27.0-32.0); Mean Corpuscular Volume 91.9 fL (81-99); Mean Platelet Vol. 10.1 fl (6.2-12.0); Monocyte# 0.77 X10^3/uL; Monocyte% 10.6 % (0-10); Neutrophil # 5.02 X10^3/uL (2.7-7.7); Neutrophil % 69.2 % (47-70); Platelet Count 183 K/mm3 (150-450); RBC Distribution Width CV 13.8 % (11.6-14.6); Red Blood Count 3.97 M/mm3 (4.2-5.4); White Blood Count 7.3 K/mm3 (4.4-11.0)
[2018-07-30 10:35] LABS: POSITIVE COUNT NO; POSITIVE DIFFERENTIAL NO; POSITIVE MORPHOLOGY NO
[2018-07-30] MEDS: Lactated Ringers 1,000 ML 150 ML IV (11:30)
[2018-07-30] MEDS: Sodium Citrate/Citric Acid 30 ML UDC PO (12:16)
[2018-07-30] MEDS: Cefazolin 2 GM in 0.9% Normal Saline 100 ML IV (12:20)
--- NOTE | 2018-07-30 13:35 | PCM.OPRPT ---
Problem List (1) Autism Status: Acute Comment: son (2) History of delivery Status: Acute Comment: versus tolac- consent form signed, uptodate education given (3) Monochorionic diamniotic twin gestation Status: Acute Qualifiers: Comment: 04/08/18 OB limited US MFM- 1 week RAINE check with MFM due to polyhydramnios. Twin A is polyhydramnios and twin B normal 06/04/18 then every 1-2 weeks. growth every 4 weeks. Baby A- small bladder Baby A echogenic foci in liver, Baby B echogenic foci near stomach. Weekly BPP at 28 weeks and twice weekly if GDM is diagnosed. Deliver at 37 weeks. (4) Status: Acute Qualifiers: Comment: genetic carrier and ntd screening offered and declined. anatomy us reviewed. Tdap given 05/26/18 (5) Supervision of high-risk Status: Acute Qualifiers: Comment: PRR ASHA 08/20/18 Boy [facility]eterian /Boy Felix PC Jimmie Thom [facility] Delivery Classification: Scheduled Final SAHA: 08/20/18 Gestational age: 37 Weeks and 0 Days Indications for : Repeat Elective , Previous Uterine Surgery Description of Procedure: The patient is a 33-year-old G2, P1 at 37 weeks with mono di-twins presented for repeat . Delivery had been recommended at 37 weeks by MFM. Spinal anesthesia was placed without difficulty. Lagunas catheter was placed. The patient was placed in the dorsal supine position with leftward tilt. Patient was prepped and draped in the normal sterile fashion. Pfannenstiel skin incision was made with the scalpel and carried through to the underlying layer of fascia with the scalpel. Fascia was nicked in the midline and the incision extended laterally. The rectus bellies were dissected off superiorly and inferiorly with out complication both sharply and bluntly. The peritoneum was entered digitally. The incision was stretched and a low transverse uterine incision was made with the scalpel. The 's buttocks was delivered without complication followed by the right left leg and right and left arm swept anteriorly and head flexed and delivered without complication the rest of the infant delivered. The cord was clamped and cut and the was handed off to awaiting nurse. The second bag was ruptured and again the second infant was delivered footling breech by delivering the feet in the buttocks and then sweeping the right and left arms anteriorly flexing the head and delivering spontaneously. It was clamped and cut and the infant handed off to waiting nurse. The placenta was delivered spontaneously immediately following and was noted to be intact and have a three-vessel cord. The uterus was exteriorized cleared of all clots and debris, and the incision was closed in a double layer closure using #1 Monocryl. The uterus was returned to the maternal abdomen and gutters were cleared of all clots and debris. The ovaries and fallopian tubes were noted to be within normal limits. The peritoneum was closed with 3-0 Monocryl in a running fashion. Fascia was closed with 0 PDS in a running fashion. Subcutaneous tissue was copiously irrigated and the skin was closed with 3-0 Monocryl in a subcuticular fashion. Mepilex dressing were applied without complication. Patient was taken to recovery in stable condition. Amniotic Membrane Rupture Type: Artificial Amniotic Fluid Description: Clear Placenta Disposition: [facility] Drain: Lagunas to straight drain Fluids Replaced: crystalloid Cord Entanglement: None Cord Vessel Description: 3 Vessels Esitmated Blood Loss (ml): 800 Infant Gender: Male Delayed cord clamping: Yes Pre-op Antibiotic Given: Ancef 2 grams IV x1 Complications: None - Admit VTE Documentation VTE Present on Admission: No VTE Mechan Device Prophylaxis: SCD's Baby B - Information Amniotic Membrane Rupture Type: Artificial Presentation: Footling Breech - Operative Information Cord Entanglement: None Cord Vessel Description: 3 Vessels B gender: Male
--- NOTE | 2018-07-30 14:30 | PLAC_PTH ---
PATIENT: RAQUEL RODRIGUEZ LOC: [facility] U#:[id number] AGE/SX: 33/F ROOM: WP004 RE07/30/[address]: Dr. Meliza Burciaga MD : 1985 BED: 1 DIS: 08/02/2018 SPEC #: [id number] RECD: 07/31/18 03:55 STATUS: PRO LAUREN #: [id number] BARBARA: 07/30/18 14:[address]: Meliza Burciaga DEPT: SURGICAL PATHOLOGY RECD BY: Demarcus Hernandez ENTERED: 07/31/18 09:37 SP TYPE: PLACENTA OTHR DR: No Primary Care Phys Tissues: Placenta, NOS Procedures: Surgery Specimen Level V HEADER OPERATION: Repeat section PRE-OP DIAGNOSIS: Twin delivery TISSUE SUBMITTED: Twin placenta MICROSCOPIC DIAGNOSIS Dichorionic diamniotic twin placenta (902 gm): Placenta A: Umbilical cord - trivascular with no inflammation. Placental membranes - minimal chronic deciduitis. Placental disc - intravillous congestion and mild Radha-Kenan change. Placenta B: Umbilical cord - trivascular with no inflammation. Placental membranes - no pathologic change. Placental disc - intravillous congestion and mild Radha-Kenan change. AM:pati 08/04/18 COMMENT Case has been reviewed in consultation with Dr. Madrigal who concurs with the above diagnosis. IDC:[email or web address] MICROSCOPIC DESCRIPTION Slides are reviewed. GROSS DESCRIPTION SPECIMEN: TWIN PLACENTA / CLINICAL INFORMATION: A. Weight: A - 3.035 kg; B - 3.431 kg B. Gestational Age: 37 weeks C. Sex: A - Male, B - male Received is a twin placenta consisting of single placental disc, two umbilical cords and two membranous sacs. The dividing membranous septum is present 9 cm away from the margin of placenta A and 15 cm away from the margin of placenta B. PLACENTAL WEIGHT (POST FIXATION): 902 gm PLACENTAL DIMENSIONS: 25 x 21 x 4.5 cm PLACENTAL SHAPE: Usual ovoid PLACENTAL WEIGHT FOR GESTATIONAL AGE: Within 10-99th percentile PLACENTA A: (cord clamp on boy #1) MEMBRANES - Present A. Insertion: Marginal B. Site of rupture from edge: The membranes are mostly fragmented and distance of rupture cannot be assessed. C. Color of membrane: Deras-martínez D. Abnormalities: None UMBILICAL CORD - Present A. Color: Deras-martínez B. Insertion: Central C. Length: 30 cm D. Diameter: 1 to 1.5 cm E. Number of vessels: Three F. Abnormalities: None PLACENTA B: MEMBRANES - Present A. Insertion: Marginal B. Site of rupture from edge: 8 cm from edge of placental disc C. Color of membrane: Deras-martínez D. Abnormalities: None UMBILICAL CORD - Present A. Color: Deras-martínez B. Insertion: Paracentral C. Length: 30 cm D. Diameter: 1.2 to 1.5 cm E. Number of vessels: Three F. Abnormalities: None PLACENTAL DISC - Present A. Color of surface: Deras-martínez B. surface abnormalities: None C. Maternal cotyledons: Intact with minimal tears D. Attached retro placental clot: No clot E. Cut surface: Dark red and spongy F. Lesions: None G. Separate clot: Also present in the container are separate blood clots weighing 30 gm and measuring 6 x 6 x 3 cm. SECTIONS SUBMITTED: 11 cassettes 1 - Dividing membranous septum, 2-6 - placenta A (2 - membrane roll, 3 - umbilical cord, end inked black, 4-6 - placental disc towards baby A), 7-11 - placenta B (7 - membrane roll, 8 - umbilical cord, end inked black, 9-11 - placental disc towards baby B). SJ:pati 08/03/18 TC:3 CPT: 47543 x2
[2018-07-30] MEDS: Ketorolac 30 MG/ML Syringe IV ×2 (14:35→20:39)
[2018-07-30] MEDS: Lactated Ringers 1,000 ML 100 ML IV (15:10)
--- NOTE | 2018-07-30 19:41 | NURSING ---
BABY2 AROM AT 1430
[2018-07-30] MEDS: 0.9% Saline Lock 10 ML Syringe IV (20:40)
[2018-07-30] MEDS: Oxytocin 30 units/NS 500 ml 30 UNITS/500 ML IV.SOLN 167 UNITS IV (22:07)
[2018-07-31] VITALS (14 sets, daily range): BP systolic 96–113; BP diastolic 55–72; PULSE 77–92; RESP 15–18; TEMP 36.2–37.1; O2SAT 97–100
[2018-07-31] MEDS: 0.9% Saline Lock 10 ML Syringe IV ×5 (02:38→20:41)
[2018-07-31] MEDS: Ketorolac 30 MG/ML Syringe IV ×4 (02:38→20:38)
[2018-07-31 04:10] LABS: Pathology Specimen OB SEE PATHOLOGY REPORT
[2018-07-31 05:21] LABS: Hematocrit 35.8 % (37-47); Hemoglobin 12.2 g/dl (12.0-15.0); Mean Corp Hgb Conc 34.1 g/gl (32-36); Mean Corpuscular Hgb 31.6 pg (27.0-32.0); Mean Corpuscular Volume 92.7 fL (81-99); Mean Platelet Vol. 9.9 fl (6.2-12.0); Platelet Count 161 K/mm3 (150-450); RBC Distribution Width CV 13.6 % (11.6-14.6); RBC Distribution Width SD 44.7 fl (35.1-43.9); Red Blood Count 3.86 M/mm3 (4.2-5.4); White Blood Count 8.9 K/mm3 (4.4-11.0)
[2018-07-31 05:27] LABS: Scan Indicated on CBC? Y/N NO
--- NOTE | 2018-07-31 13:21 | PCM.PN.OB ---
Subjective: doing well no complaints pain controlled no CP SOB N V ambulating well tolerating po lochia moderate, going well - Physical Exam General: Alert, Oriented x3 Vital Signs Temp Pulse Resp BP Pulse Ox 97.9 F 77 16 113/72 100 07/31/18 12:30 07/31/18 12:30 07/31/18 12:30 07/31/18 12:30 07/31/18 12:30 Oxygen Delivery Method Room Air Weight: 183 lb 6.793 oz Body Mass Index (BMI) 30.5 Intake and Output for Last 24 Hours 07/29/18 07/30/18 07/31/18 23:59 23:59 23:59 Intake Total 5321 / 5321 2009 Output Total 1550 / 1550 3400 / 3400 Balance 3771 / 3771 -1390 / -1390 Laboratory Tests Past 24 Hrs 07/31/18 05:13 WBC 8.9 RBC 3.86 L Hgb 12.2 Hct 35.8 L MCV 92.7 MCH 31.6 MCHC 34.1 RDW 13.6 RDW Differential 44.7 H Plt Count 161 MPV 9.9 Medical Necessity - Tobacco Use Smoking Status: Never smoker Assessment/Plan All Active Problems (Last Reviewed 07/27/18 @ 09:17 by Celine Warner) Autism (Acute) History of delivery (Acute) Monochorionic diamniotic twin gestation (Acute) (Acute) Supervision of high-risk (Acute) s/p LTCS PPD # 1 1. routine post care 2. breast feeding- support given 3. rh positive 4. rubella immune
[2018-07-31] MEDS: Acetaminophen 500 MG Tablet 1000 MG PO (17:36)
[2018-07-31] MEDS: oxyCODONE 5 MG Tablet PO (18:40)
[2018-07-31] MEDS: Senna/Docusate Sodium 1 Tablet PO (20:39)
--- NOTE | 2018-07-31 21:11 | NURSING ---
pt states she has no headache when lying flat but instantly increases to level 8 when upright. encouraged to stay flat when possible tonight and encouraged.
[2018-08-01 02:40] VITALS: BP 104/63; PULSE 76; RESP 16; TEMP 36.6
[2018-08-01] MEDS: Ketorolac 30 MG/ML Syringe IV ×2 (02:43→08:33)
[2018-08-01] MEDS: 0.9% Saline Lock 10 ML Syringe IV ×3 (02:44→08:34)
[2018-08-01 08:00] VITALS: BP 107/61; PULSE 71; RESP 18; TEMP 36.5
--- NOTE | 2018-08-01 09:17 | PCM.PN.OB ---
Subjective: doing well no complaints pain controlled no CP SOB N V ambulating well tolerating po lochia moderate, going well although difficult last night - Physical Exam General: Alert, Oriented x3 Vital Signs Temp Pulse Resp BP Pulse Ox 97.7 F L 71 18 107/61 97 08/01/18 08:00 08/01/18 08:00 08/01/18 08:00 08/01/18 08:00 07/31/18 16:32 Oxygen Delivery Method Room Air Weight: 183 lb 6.793 oz Body Mass Index (BMI) 30.5 Intake and Output for Last 24 Hours 07/30/18 07/31/18 08/01/18 23:59 23:59 23:59 Intake Total 5321 / 5321 2009 Output Total 1550 / 1550 3900 / 3900 Balance 3771 / 3771 -1890 / -1890 Medical Necessity - Tobacco Use Smoking Status: Never smoker Assessment/Plan All Active Problems (Last Reviewed 07/27/18 @ 09:17 by Celine Warner) Autism (Acute) History of delivery (Acute) Monochorionic diamniotic twin gestation (Acute) (Acute) Supervision of high-risk (Acute) s/p LTCS PPD # 2 1. routine post care 2. breast feeding- support given 3. rh positive 4. rubella immune
[2018-08-01] MEDS: Acetaminophen 500 MG Tablet 1000 MG PO ×2 (13:25→21:27)
[2018-08-01 13:36] VITALS: BP 114/66; PULSE 74; RESP 18; TEMP 37.1; O2SAT 97
[2018-08-01] MEDS: Naproxen 250 MG Tablet PO (15:37)
[2018-08-01] MEDS: Senna/Docusate Sodium 1 Tablet PO (20:27)
[2018-08-01] MEDS: oxyCODONE 5 MG Tablet PO (20:28)
[2018-08-01 20:30] VITALS: BP 102/53; PULSE 60; RESP 18; TEMP 36.7
[2018-08-02 03:10] VITALS: BP 109/69; PULSE 63; RESP 18; TEMP 36.8
[2018-08-02 08:16] VITALS: BP 110/64; PULSE 75; RESP 18; TEMP 36.5; O2SAT 100
--- NOTE | 2018-08-02 08:58 | PCM.DC.SUM ---
Discharge Date and Diagnosis Date of Admission: 07/30/18 Hospital Course and Treatment Procedures: - - repeat c section, twin Summary of Care Provided: The patient is a 33 year for Patient underwent section/twin with routine recovery, return of normal bowel and bladder function. Ambulating, voiding and tolerating PO. Stable for discharge home POD #3. - Physical Exam Vital Signs Temp Pulse Resp BP Pulse Ox 97.7 F L 75 18 110/64 100 08/02/18 08:16 08/02/18 08:16 08/02/18 08:16 08/02/18 08:16 08/02/18 08:16 Oxygen Delivery Method Room Air Weight: 183 lb 6.793 oz Body Mass Index (BMI) 30.5 Intake and Output for Last 24 Hours 07/31/18 08/01/18 08/02/18 23:59 23:59 23:59 Intake Total 2009 Output Total 3900 / 3900 Balance -1890 / -1890 Home Medications: Medications to take at Discharge ferrous sulfate 325 mg (65 mg iron) tablet 325 mg PO DAILY tab 03/13/18 vitamin#30 30 mg iron-10 mg iron-folic acid 1 mg-omg3 capsule 1 cap PO DAILY cap 03/13/18 Aspirin [Aspir 81] 81 mg PO DAILY 04/08/18 Ranitidine HCl 150 mg PO BID 07/30/18 Naproxen [Naprosyn] 250 - 500 mg PO Q8H PRN PRN #30 tablet 08/01/18 Oxycodone HCl/Acetaminophen [Percocet 5-325] 1 - 2 tablet PO Q4H PRN PRN 7 Days #28 tablet 08/01/18 Following Prescrptions Were Given to Patient: Oxycodone HCl/Acetaminophen [Percocet 5-325] 1 - 2 tablet PO Q4H PRN PRN 7 Days #28 tablet PRN Reason: Moderate-Severe pain Naproxen [Naprosyn] 250 - 500 mg PO Q8H PRN PRN #30 tablet PRN Reason: MILD PAIN Primary Care Physician: Care Physician,No Primary [Primary Care Provider] - Medical Necessity - Tobacco Use Smoking Status: Never smoker Meaningful Use Info Meaningful Use Diagnoses (Choose all that apply): None applicable
--- NOTE | 2018-08-02 09:00 | PCM.PN.OB ---
Subjective: doing well no complaints pain controlled no CP SOB N V ambulating well tolerating po lochia moderate, going well - Physical Exam General: Alert, Oriented x3 Abdomen: Soft, Non-Distended, - - FF below U. Dressing dry and intact Vital Signs Temp Pulse Resp BP Pulse Ox 97.7 F L 75 18 110/64 100 08/02/18 08:16 08/02/18 08:16 08/02/18 08:16 08/02/18 08:16 08/02/18 08:16 Oxygen Delivery Method Room Air Weight: 183 lb 6.793 oz Body Mass Index (BMI) 30.5 Intake and Output for Last 24 Hours 07/31/18 08/01/18 08/02/18 23:59 23:59 23:59 Intake Total 2009 Output Total 3900 / 3900 Balance -1890 / -1890 Medical Necessity - Tobacco Use Smoking Status: Never smoker Assessment/Plan All Active Problems (Last Reviewed 07/27/18 @ 09:17 by Celine Warner) Autism (Acute) History of delivery (Acute) Monochorionic diamniotic twin gestation (Acute) (Acute) Supervision of high-risk (Acute) s/p LTCS PPD # 3 1. routine post care 2. breast feeding- support given 3. rh positive 4. rubella immune 5. Home today
--- NOTE | 2018-08-02 09:01 | DCINST_ITS ---
Additional Instructions: If you experience any of the following, contact your healthcare provider. * Bleeding that soaks a pad every hour for 2 hours * Fever 100.4 or higher * Unrelieved incision or abdominal pain * Swelling, redness, discharge or bleeding from your incision or episiotomy site * Your incision begins to separate * Problems urinating (including inability to urinate or burning while urinating). * Visual changes * Severe headache * Flu-like symptoms * Pain or redness in one of both of your breasts * Pain, warmth, tenderness or swelling in your legs, especially the calf area * Frequent nausea and vomiting * Symptoms of depression or anxiety If you experience any of the following, call 911 or go to the nearest Emergency Room. * Chest pain * Problems breathing * Seizure activity * Partial or complete paralysis of a body part, slurred speech, weakness or drooping of the face, or a sudden inability to walk or hold your balance Allergies/Adverse Reactions: Allergies latex Adverse Reaction (Verified 07/27/18 09:17) Rash Medications to take at Discharge ferrous sulfate 325 mg (65 mg iron) tablet 325 mg PO DAILY tab 03/13/18 vitamin#30 30 mg iron-10 mg iron-folic acid 1 mg-omg3 capsule 1 cap PO DAILY cap 03/13/18 Aspirin [Aspir 81] 81 mg PO DAILY 04/08/18 Ranitidine HCl 150 mg PO BID 07/30/18 Naproxen [Naprosyn] 250 - 500 mg PO Q8H PRN PRN #30 tablet 08/01/18 Oxycodone HCl/Acetaminophen [Percocet 5-325] 1 - 2 tablet PO Q4H PRN PRN 7 Days #28 tablet 08/01/18 The following prescriptions were given: Oxycodone HCl/Acetaminophen [Percocet 5-325] 1 - 2 tablet PO Q4H PRN PRN 7 Days #28 tablet PRN Reason: Moderate-Severe pain Naproxen [Naprosyn] 250 - 500 mg PO Q8H PRN PRN #30 tablet PRN Reason: MILD PAIN Follow-Up: Call to make an appointment with your doctor for an incision check in 1-2 weeks. You will also need a 6 week post- follow up appointment. Test results from this visit will be discussed in further detail at your follow- up appointment, if applicable. Primary Care Physician: Care Physician,No Primary [Primary Care Provider] -
[2018-08-02] MEDS: oxyCODONE 5 MG Tablet PO (10:50)
[2018-08-02] MEDS: Acetaminophen 500 MG Tablet 1000 MG PO (10:50)
[2018-08-02 13:36] VITALS: BP 111/63; PULSE 70; RESP 18; TEMP 36.5; O2SAT 97
== END 2018-08-02 13:50 | disposition home or self-care (01) | DRG 788 ==
PROVIDERS: Admitting Provider Obstetrics & Gynecology; Referring Provider Obstetrics & Gynecology; Visit Provider Obstetrics & Gynecology
PROC: 10D00Z1 Extraction of Products of Conception, Low, Open Approach (ICD-10-PCS; CPT 59514; principal; 2018-07-30 11:45)
DX: O34.219 Maternal care for unspecified type scar from previous cesarean delivery (principal); O40.3XX1 Polyhydramnios, third trimester, fetus 1; O32.8XX2 Maternal care for other malpresentation of fetus, fetus 2; O30.033 Twin pregnancy, monochorionic/diamniotic, third trimester; Z79.82 Long term (current) use of aspirin; Z79.1 Long term (current) use of non-steroidal anti-inflammatories (NSAID); Z79.899 Other long term (current) drug therapy; Z3A.37 37 weeks gestation of pregnancy; Z37.2 Twins, both liveborn
CPT/HCPCS: 85025; 85027; 86850; 86900; 88307; 94762; 99218; J7120; A4216; G0378; J2405

== ENCOUNTER → 2018-09-01 06:55 | Outpatient (CLI) | payer OTHER, SELFPAY ==
[2018-08-12 11:50] VITALS: BMI 30.5
== END ==
PROVIDERS: Visit Provider Pediatrics
DX: R63.3 Feeding difficulties (principal)
CPT/HCPCS: 99218; G0378

== ENCOUNTER → 2018-09-11 13:21 | Outpatient (CLI) | payer OTHER, SELFPAY ==
[2018-09-11 11:57] VITALS: BMI 30.5
[2018-09-20 14:08] LABS: HPV APTIMA, High Risk Negative (Negative)
== END ==
PROVIDERS: Referring Provider Obstetrics & Gynecology; Visit Provider Obstetrics & Gynecology
DX: Z12.4 Encounter for screening for malignant neoplasm of cervix (principal)
CPT/HCPCS: 87624; 88175; G0145